=== PATIENT | female | born 1955 | race Two or more races ===

== ENCOUNTER → 2016-12-21 | Outpatient (CLI) | payer BC ==
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
== END ==
LOC: M LRY 13:52
PROVIDERS: ATTEND Physician Assistant
DX: S32.402A Unspecified fracture of left acetabulum, initial encounter for closed fracture (principal); S32.502A Unspecified fracture of left pubis, initial encounter for closed fracture; X58.XXXA Exposure to other specified factors, initial encounter; Y93.9 Activity, unspecified; Y92.9 Unspecified place or not applicable; Y99.8 Other external cause status